=== PATIENT | male | born 2005 | race Caucasian/White ===

== ENCOUNTER 2024-05-14 16:41 | Outpatient (REF) | payer OTHER, SELFPAY ==
--- NOTE | ~2024-05-14 | US_ITS ---
EXAMINATION: US SOFT TISSUE OF THE NECK CLINICAL INFORMATION: Swollen glands. COMPARISON: None available. TECHNIQUE: Linear transducer grayscale and color Doppler examination of the bilateral neck. FINDINGS: The cutaneous, subcutaneous, muscular and fascial layers are unremarkable. At right cervical level III, a 1.7 x 0.6 x 0.7 cm reniform lymph node is seen. This shows faint corticomedullary differentiation and a vascular hilum. At left cervical level III, a 2.0 x 0.4 x 0.6 cm reniform lymph node is seen. This shows poor corticomedullary differentiation and a vascular hilum. No mass or fluid collection is seen. US/US soft tiss head and/or neck IMPRESSION: There are mildly prominent, nonpathologically enlarged bilateral cervical lymph nodes, as detailed. These may be reactive. Recommend management on a clinical basis. Electronically signed by: Alejandro Graves MD 05/22/2024 04:49 PM EDT
== END 2024-05-14 16:42 | disposition home or self-care (01) ==
LOC: HO.US 16:41
PROVIDERS: PCP Internal Medicine; Visit Provider Internal Medicine
DX: R59.9 Enlarged lymph nodes, unspecified (principal)
CPT/HCPCS: 76536